=== PATIENT | female | born 1985 | race Caucasian/White ===

== ENCOUNTER 2017-03-19 23:20 | Emergency (ER) | payer MEDICAID ==
[2017-03-19] MEDS ORDERED: Sodium Chloride 0.9% 10 ML Syringe FLUSH PRN (23:45)
[2017-03-20] MEDS ORDERED: Iopamidol 755 Mg/ML 100 ML Bottle IV ONE (00:30)
[2017-03-20] MEDS ORDERED: Acetaminophen 325 MG Tab ONE (00:40)
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
[2017-03-20] MEDS ORDERED: Acetaminophen 325 MG Tab PO STA (01:47)
== END 2017-03-20 02:31 | disposition home or self-care (01) ==
LOC: FB.ED 23:20
DX: S30.1XXA Contusion of abdominal wall, initial encounter (principal); F17.210 Nicotine dependence, cigarettes, uncomplicated; Z79.899 Other long term (current) drug therapy; Y04.0XXA Assault by unarmed brawl or fight, initial encounter
CPT/HCPCS: 36415; 74177; 80053; 81001; 84702; 85025; 99284; A9270; J7050; Q9967

== ENCOUNTER 2019-11-02 10:28 | Emergency (ER) | payer MEDICAID ==
[2019-11-02] MEDS ORDERED: LORazepam 2 MG/ML SDV IM STA (11:24)
--- NOTE | 2019-11-02 12:39 | EDM.PDOC ---
ED HPI GENERAL MEDICAL PROBLEM - General Chief Complaint: General Stated Complaint: PANIC Time Seen by Provider: 11/02/19 11:25 Source of Information: Reports: Patient History Limitations: Reports: No Limitations - History of Present Illness INITIAL COMMENTS - FREE TEXT/NARRATIVE: Patient presented to the ED because of a panic attack. She has a history of bipolar and is supposed to be taking lamotrigine,cymbalta, and gabapentin but she quit taking her medicines because it sedates her and her mind is always cloudy. She denies any suicidal or homicidal thoughts. 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 History: Reports: Fracture, Other (See Below) Other Musculoskeletal History: Hx R carpel tunnel, R 5th toe fx Psychiatric History: Reports: Anxiety, Bipolar, Depression, Panic Attack - Infectious Disease History Infectious Disease History: Reports: Chicken Pox - Past Surgical History HEENT Surgical History: Reports: Oral Surgery Female Surgical History: Reports: LEEP, Other (See Below) Other Female Surgeries/Procedures: colposcopy Social & Family History - Family History Family Medical History: Noncontributory ED ROS GENERAL - Review of Systems Review Of Systems: See Below Constitutional: Reports: No Symptoms HEENT: Reports: No Symptoms Respiratory: Reports: No Symptoms Cardiovascular: Reports: No Symptoms Endocrine: Reports: No Symptoms GI/Abdominal: Reports: No Symptoms : Reports: No Symptoms Musculoskeletal: Reports: No Symptoms Skin: Reports: No Symptoms Neurological: Reports: No Symptoms Psychiatric: Reports: Anxiety Hematologic/Lymphatic: Reports: No Symptoms Immunologic: Reports: No Symptoms ED EXAM, GENERAL - Physical Exam Exam: See Below Exam Limited By: No Limitations General Appearance: Alert, No Apparent Distress Eye Exam: Bilateral Eye: PERRL Ears: Normal External Exam, Normal Canal Nose: Normal Inspection, Normal Mucosa, No Blood Throat/Mouth: Normal Inspection, Normal Lips, Normal Teeth Head: Atraumatic, Normocephalic Neck: Normal Inspection, Supple, Non-Tender, Full Range of Motion Respiratory/Chest: No Respiratory Distress, Lungs Clear, Normal Breath Sounds Cardiovascular: Normal Peripheral Pulses, Regular Rate, Rhythm, No Edema GI/Abdominal: Normal Bowel Sounds, Soft, Non-Tender, No Organomegaly Back Exam: Normal Inspection, Full Range of Motion Extremities: Normal Inspection, Normal Range of Motion, Non-Tender Neurological: Alert, Oriented, CN II-XII Intact Psychiatric: Anxious Course - Vital Signs Text/Narrative:: ativan 1 mg IMx1 Last Recorded V/S: Last Vital Signs Temp 36.5 C 11/02/19 11:19 Pulse 67 11/02/19 11:19 Resp 18 11/02/19 11:19 BP 124/71 11/02/19 11:19 Pulse Ox 96 11/02/19 11:19 - Orders/Labs/Meds Meds: Medications Discontinued Medications Generic Name Dose Route Start Last Admin Trade Name Freq PRN Reason Stop Dose Admin Lorazepam 1 mg 11/02/19 11:24 11/02/19 11:41 Ativan IM 11/02/19 11:25 1 mg NOW STA Administration Departure - Departure Time of Disposition: 12:40 Disposition: Home, Self-Care 01 Condition: Good Clinical Impression: Panic attack - Discharge Information Prescriptions: ClonazePAM [KlonoPIN] 0.5 mg PO BID PRN #10 tab PRN Reason: Anxiety Referrals: PCP,None [Primary Care Provider] - Additional Instructions: Please read discharge instructions on Panic attack and Bipolar Call your clinic to refer you to see your psychiatrist so you can start taking medications to control your bipolar Take klonopin 0.5 mg twice daily as needed for anxiety Sepsis Event Note (ED) - Evaluation Sepsis Screening Result: No Definite Risk - Focused Exam Vital Signs: Vital Signs Temp Pulse Resp BP Pulse Ox 11/02/19 11:19 36.5 C 67 18 124/71 96
== END 2019-11-02 12:45 | disposition home or self-care (01) ==
LOC: FB.ED 10:28
DX: F41.0 Panic disorder [episodic paroxysmal anxiety] (principal)
CPT/HCPCS: 36415; 80053; 80305-QW; 80307; 81001; 81025; 84443; 85025; 96372; 99283; J2060

== ENCOUNTER 2020-08-06 09:34 | Emergency (ER) | payer MEDICAID ==
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
== END 2020-08-06 11:35 | disposition left against medical advice (07) ==
LOC: FB.ED 09:34
DX: R33.9 Retention of urine, unspecified (principal); Z53.21 Procedure and treatment not carried out due to patient leaving prior to being seen by health care provider
CPT/HCPCS: 36415; 80053; 81001; 85025; 86140; 99283

== ENCOUNTER 2021-05-23 08:29 | Emergency (ER) | payer BC, MEDICAID | END 2021-05-23 10:40 | disposition home or self-care (01) | LOC: FB.ED 08:29 | DX: F32.9 Major depressive disorder, single episode, unspecified (principal) | CPT/HCPCS: 99283 ==